=== PATIENT | male | born 1985 | race Caucasian/White ===

== ENCOUNTER 2017-07-29 12:27 | Emergency (ER) | payer BC, OTHER ==
--- NOTE | 2017-07-29 13:34 | EDM.PDOC ---
ED HPI GENERAL MEDICAL PROBLEM - General Chief Complaint: Upper Extremity Injury/Pain Stated Complaint: LT HAND HURTS Time Seen by Provider: 07/29/17 12:30 Source of Information: Reports: Patient History Limitations: Reports: No Limitations - History of Present Illness INITIAL COMMENTS - FREE TEXT/NARRATIVE: History of present illness: [32-year-old male presenting with left arm/wrist pain patient indicates that he had a mechanical fall while drinking yesterday and when he woke up today his forearm was painful] Review of systems: As per history of present illness and below otherwise all systems reviewed and negative. Past medical history: As per history of present illness and as reviewed below otherwise noncontributory. Surgical history: As per history of present illness and as reviewed below otherwise noncontributory. Social history: No reported history of drug or alcohol abuse. Family history: As per history of present illness and as reviewed below otherwise noncontributory. Physical exam: HEENT: Atraumatic, normocephalic, pupils reactive, negative for conjunctival pallor or scleral icterus, mucous membranes moist, throat clear, neck supple, nontender, trachea midline. Lungs: Clear to auscultation, breath sounds equal bilaterally, chest nontender. Heart: S1S2, regular, negative for clicks, rubs, or JVD. Abdomen: Soft, nondistended, nontender. Negative for masses or hepatosplenomegaly. Negative for costovertebral tenderness. Pelvis: Stable nontender. Genitourinary: Deferred. Rectal: Deferred. Extremities: Left forearm with slight amount of generalized edema, abrasion to left elbow but otherwise benign. Neurovascular unremarkable. Neuro: Awake, alert, oriented. Cranial nerves II through XII unremarkable. Cerebellum unremarkable. Motor and sensory unremarkable throughout. Exam nonfocal. Diagnostics: [X-ray to left wrist/arm] Therapeutics: [Toradol 60 mg IM] Impression: [nondisplaced fracture at the tip with the radial styloid] Plan: [Splint follow-up with orthopedic] Definitive disposition and diagnosis as appropriate pending reevaluation and review of above. Left Wrist Pain Score (Numeric/FACES): 5 - Related Data Allergies Allergy/AdvReac Type Severity Reaction Status Date / Time No Known Allergies Allergy Verified 07/29/17 12:35 Home Meds: Home Meds . [No Known Home Meds] 07/29/17 [History] Past Medical History HEENT History: Reports: None Cardiovascular History: Reports: None Respiratory History: Reports: None Gastrointestinal History: Reports: None Genitourinary History: Reports: None Musculoskeletal History: Reports: None Neurological History: Reports: None Psychiatric History: Reports: None Endocrine/Metabolic History: Reports: None Hematologic History: Reports: None Immunologic History: Reports: None Oncologic (Cancer) History: Reports: None Dermatologic History: Reports: None - Infectious Disease History Infectious Disease History: Reports: Chicken Pox - Past Surgical History Head Surgeries/Procedures: Reports: None HEENT Surgical History: Reports: None Cardiovascular Surgical History: Reports: None Respiratory Surgical History: Reports: None GI Surgical History: Reports: None Male Surgical History: Reports: None Endocrine Surgical History: Reports: None Musculoskeletal Surgical History: Reports: None Oncologic Surgical History: Reports: None Dermatological Surgical History: Reports: None Social & Family History - Family History Family Medical History: Noncontributory - Tobacco Use Smoking Status *Q: Current Every Day Smoker Years of Tobacco use: 10 Packs/Tins Daily: 0.2 - Caffeine Use Caffeine Use: Reports: Coffee - Recreational Drug Use Recreational Drug Use: No Review of Systems - Review of Systems Review Of Systems: See Below (See history of present illness) ED EXAM, GENERAL - Physical Exam Exam: See Below (See history of present illness) Course - Vital Signs Last Recorded V/S: Last Vital Signs Temp 36.8 C 07/29/17 12:36 Pulse 97 07/29/17 12:36 Resp 16 07/29/17 12:36 BP 145/84 H 07/29/17 12:36 Pulse Ox 99 07/29/17 12:36 - Orders/Labs/Meds Orders: Active Orders 24 hr Category Date Time Status Wrist 2V Lt [CR] Stat Exams 07/29/17 12:54 Taken Meds: Medications Discontinued Medications Generic Name Dose Route Start Last Admin Trade Name Freq PRN Reason Stop Dose Admin Ketorolac Tromethamine 60 mg 07/29/17 13:35 Toradol IM 07/29/17 13:36 ONETIME ONE Departure - Departure Time of Disposition: 13:57 Disposition: Home, Self-Care 01 Condition: Good Clinical Impression: Fracture of radius - Discharge Information Instructions: Cast or Splint Care, [id number] Referrals: PCP,None [Primary Care Provider] - Forms: ED Department Discharge Additional Instructions: The following information is given to patients seen in the emergency department who are being discharged to home. This information is to outline your options for follow-up care. We provide all patients seen in our emergency department with a follow-up referral. The need for follow-up, as well as the timing and circumstances, are variable depending upon the specifics of your emergency department visit. If you don't have a primary care physician on staff, we will provide you with a referral. We always advise you to contact your personal physician following an emergency department visit to inform them of the circumstance of the visit and for follow-up with them and/or the need for any referrals to a consulting specialist. The emergency department will also refer you to a specialist when appropriate. This referral assures that you have the opportunity for follow-up care with a specialist. All of these measure are taken in an effort to provide you with optimal care, which includes your follow-up. Under all circumstances we always encourage you to contact your private physician who remains a resource for coordinating your care. When calling for follow-up care, please make the office aware that this follow-up is from your recent emergency room visit. If for any reason you are refused follow-up, please contact the [facility] Emergency Department at and asked to speak to the emergency department charge nurse. You have a small fracture of a bone on the inner aspect of your wrist wear your splint as directed Follow-up with or so as directed [facility] [address], [address] [place] [address] - My Orders Last 24 Hours: My Active Orders 07/29/17 12:54 Wrist 2V Lt [CR] Stat - Assessment/Plan Last 24 Hours: My Active Orders 07/29/17 12:54 Wrist 2V Lt [CR] Stat
[2017-07-29] MEDS ORDERED: Ketorolac 60 MG/2 ML SDV IM ONE (13:35)
--- NOTE | 2017-07-30 15:20 | CR ---
EXAM DATE: 07/29/17 PATIENT'S AGE: 32 Patient: CRYSTAL CAMPOS Facility: [place], [place] Site . Site : 1985 Study: XRay Extremity Left [id number] 1:13:41 PM Ordering Physician: Doctor Richard Final Report: Wrist injury technique 2 views of the right wrist.Findings: There is a nondisplaced fracture at the tip with the radial styloid. There is soft tissue swelling. Old left 5th metacarpal fracture. Dictated by Michelle Nick MD @ Jul 29 2017 1:33PM (Electronic Signature) Report Signed by Proxy. MARY
== END 2017-07-29 14:15 | disposition home or self-care (01) ==
LOC: MW.ED 12:27
DX: S52.514A Nondisplaced fracture of right radial styloid process, initial encounter for closed fracture (principal); F17.210 Nicotine dependence, cigarettes, uncomplicated; W19.XXXA Unspecified fall, initial encounter
CPT/HCPCS: 73100-26-LT; 73100-LT; 99282; 99283